=== PATIENT | female | born 1935 | race Caucasian/White ===

== ENCOUNTER → 2016-09-22 08:01 | Outpatient (CLI) | payer MEDICARE, OTHER ==
[2016-05-30 01:31] VITALS: BMI 32.5
[~2016-09-22 08:01] MED LIST: ARICEPT5 MG PO; ASPIRIN81 MG PO; BENICAR HCT 40-1 TA1 PO; BETAPACE 80 MG80 MG PO; CALCIUM 600+D T1 TA1 PO; CALTRATE-600600 MG; CELEXA10 MG PO; CELEXA20 MG PO; CO Q-10200 MG; CO Q-10200 MG PO; CORDARONE200 MG PO; DRIMINATE50 MG PO; DUTOPROL 50-121 EACH PO; ELAVIL10 MG; HYDROCODON-ACE1 EAC7 PO; HYDROCODONE-APA1 TAB PO; HYZAAR 100-25 T1 TAB PO; ISOSORBIDE DINI10 MG PO; LEVOTHROID150 MCG PO; LOPID600 MG PO; MELATONIN 3 MG1 TAB PO; MICRO-K10 MEQ PO; MULTIPLE VITAMI1 TA1 PO; NAMENDA10 MG PO; NITROSTAT0.4 MG SL; NORCO 10/325 TA1 TA1; PACERONE100 MG PO; PRAVACHOL20 MG PO; SYNTHROID300 MCG PO; VALIUM5 MG PO; XARELTO10 MG PO
== END | disposition home or self-care (01) ==
LOC: D.RT 09-20 11:45 → D.CT 09-20 14:00 → D.RT 08:00
DX: Z77.090 Contact with and (suspected) exposure to asbestos (principal)